=== PATIENT | female | born 1965 | race Caucasian/White ===

== ENCOUNTER 2024-02-24 16:40 | Emergency (ER) | payer OTHER, SELFPAY ==
[2024-02-24 16:56] VITALS: BP 132/83
--- NOTE | 2024-02-24 16:57 | ED.GENMED ---
ED Provider Triage
-
Patient seen by provider in Triage?: Seen in Triage
58 yo female presents for evaluation of chest pain that began 90 min [employer] while eating. Pain is waxing and waning. Vomited x 4. + SOB. No hx of similar. Not worse with PO intake.
Appears well, initial EKG non ischemic. Check cardiac w/u
History of Present Illness
General
Chief Complaint: Chest Pain
History of Present Illness
History of Present Illness:
see triage
Past History
Past History
ED Past Medical History: Asthma (Singulair, albuterol inhaler as needed. Last needed 2 weeks ago), Cancer (Basal cell on back 10 yrs ago), GERD (Omeprazole), Hypercholesterolemia (Prevestatin), Psychiatric (Depression: takes Zoloft), Other
(palpitations: Metoprolol. Followed by Dr. Lara, cardiology in [facility].) and Other (Patient has a history of fibromyalgia, headaches, migraines, tingling in the extremities, pneumonia, hiatal hernia, irritable bowel syndrome, loss of urination
control, kidney stones, torsion kidney, impaired vision, and depression); Negative HTN, NIDDM, VA, Renal failure, Valvular disease or Hypothyroidism
ED Past Surgical History: Other (Partial hysterectomy, rectal reconstruction age 25 'every thing fell and they had to reconstruct it back up,' 4 bladder lifts)
Social History
Tobacco: Non-smoker
Alcohol: None
Personal: Single
Living: other (Significant other)
Employment: Not employed (trying to get SSI for chronic pain)
Family History
Family History: Negative Cancer (no hx colon cancer)
Phy Exam
Physical Exam
Physical Exam:
see triage
Scores
Heart Score for Chest Pain Patients
STEMI patient?: Not applicable
Course
Orders/Labs/Results
Orders:
Orders
02/24/24 16:41
Electrocardiogram (*1) Urgent
Reason for Study: Chest Pain
EKG- Treatment ONCE
02/24/24 16:57
CR Chest - 2 Views Urgent
Comment:
Reason For Exam: chest pain
02/24/24 17:06
Complete Blood Count/With Diff Urgent
Comprehensive Metabolic Panel Urgent
Troponin I Urgent
Abnormal Lab Results
02/24/24
17:06
RBC 4.06 L 10^6/uL
(4.20-5.40)
Hgb 10.6 L g/dL
(12.0-16.0)
Hct 33.6 L %
(37.0-47.0)
MCH 26.1 L pg
(27.0-31.0)
MCHC 31.5 L g/dL
(33.0-37.0)
Absolute Lymphs (auto) 1.1 L 10^3/uL
(1.2-3.4)
Lymphocytes % 19.0 L %
(20.5-51.1)
Glucose 111 H mg/dl
(70-99)
AST 56 H U/L
(14-36)
Alkaline Phosphatase 165 H U/L
(38-126)
02/24/24 17:06
02/24/24 17:06
Vital Signs
Initial and Last Documented VS:
Initial Vital Signs
Temp Pulse Resp BP Pulse Ox
97.7 F 76 18 132/83 97
02/24/24 16:56 02/24/24 16:56 02/24/24 16:56 02/24/24 16:56 02/24/24 16:56
Last Documented Vital Signs
Temp Pulse Resp BP Pulse Ox
97.7 F 76 18 132/83 97
02/24/24 16:56 02/24/24 16:56 02/24/24 16:56 02/24/24 16:56 02/24/24 16:56
*Critical Care Note
Total Time (30-74mins, 75-104mins- exclusive of procedures): Not Applicable
ED Attending Note
-
Portions of this chart may have been created with voice recognition software.� Occasional wrong word or��sound alike� substitutions may have occurred due to the inherent limitations of voice recognition software.
Discharge Plan
Departure
Patient Disposition: Left Without Treatment
Prescriptions:
No Action
methylprednisolone 4 MG tablet
4 mg PO TAPER
dipyridamole 50 MG tablet
50 mg PO HS
montelukast 10 MG tablet
10 mg PO QPM
pravastatin 20 MG tablet
20 mg PO HS
metoprolol succinate [Toprol XL] 25 MG tablet extended release 24 hr
25 mg PO HS
hydroxychloroquine 200 MG tablet
200 mg PO HS
sertraline 50 MG tablet
50 mg PO HS
pregabalin [Lyrica] 75 MG capsule
75 mg PO HS
cholecalciferol (vitamin D3) [Vitamin D3] 4,000 UNIT capsule
4,000 unit PO HS
Colcrys
0.6 mg PO HS
Iron
45 mg PO HS
methylprednisolone [Medrol (Demond)] 4 MG tablets,dose pack
4 tab PO . DIRECT Qty: 1 0RF
prednisone 10 MG tablet
10 mg PO .TAPER Qty: 30 0RF
Rx Instructions:
Take 50mg daily for 2 days, 40mg daily for 2 days, 30mg daily for 2 days, 20mg daily for 2 days, 10mg daily for 2 days
amoxicillin-pot clavulanate 1 TABLET tablet
1 tab PO Q12 Qty: 20 0RF
Interventions
Interventions:
*Nursing Disposition Last Done: 02/24/24 21:41
Discharge Date and Time
Discharge Date/Time: 02/24/24 21:40
Print Language: GUATEMALAN
[2024-02-24 17:17] LABS: % Basophils 0.5 % (0-2); % Eosinophils 3.7 % (0-6); % Immature Granulocytes 0.2 % (0-0.5); % Monocytes 6.6 % (1.7-9.3); Absolute Eosinophils 0.2 10^3/uL (0-0.7); Absolute Lymphocytes 1.1 10^3/uL (1.2-3.4); Absolute Monocytes 0.4 10^3/uL (0.1-0.6); Hematocrit 33.6 % (37.0-47.0); Hemoglobin 10.6 g/dL (12.0-16.0); Mean Corp Hgb Conc. 31.5 g/dL (33.0-37.0); Mean Corpuscular Hgb 26.1 pg (27.0-31.0); Mean Corpuscular Volume 82.8 fL (81.0-99.0); Mean Platelet Volume 9.8 fL (7.4-10.4); Nucleated Red Blood Cells % 0 %; Platelet Count 207 10^3/uL (130-400); Red Blood Cell Count 4.06 10^6/uL (4.20-5.40); Red Cell Dist. Width 12.6 % (11.5-14.5); White Blood Cell Count 5.8 10^3/uL (4.8-10.8)
[2024-02-24 17:35] LABS: ALT (SGPT) 14 U/L (0-35); AST (SGOT) 56 U/L (14-36); Albumin 4.2 g/dl (3.5-5.0); Alkaline Phosphatase 165 U/L (38-126); Blood Urea Nitrogen 9 mg/dl (7-17); Calcium 9.3 mg/dl (8.4-10.2); Carbon Dioxide 30 mmol/L (22-30); Chloride 106 mmol/L (98-107); Glucose 111 mg/dl (70-99); Potassium 4.9 mmol/L (3.5-5.1); Sodium 141 mmol/L (135-145); Total Bilirubin 0.5 mg/dl (0.2-1.3); Total Protein 6.8 g/dl (6.3-8.2); eGFR > 60.00
[2024-02-24 17:39] LABS: Troponin I < 0.012 ng/ml
== END 2024-02-24 21:40 ==
LOC: EMR 16:40
PROVIDERS: Physician Assistant
DX: R07.89 Other chest pain (principal); Z53.21 Procedure and treatment not carried out due to patient leaving prior to being seen by health care provider
CPT/HCPCS: 99281; 71046; 80053; 84484; 85025; 93005

== ENCOUNTER → 2024-04-10 09:21 | Outpatient (REF) | payer OTHER, SELFPAY ==
[2024-04-10 12:44] LABS: % Basophils 0.8 % (0-2); % Eosinophils 6.1 % (0-6); % Lymphocytes 35.5 % (20.5-51.1); % Monocytes 9.8 % (1.7-9.3); % Neutrophils 47.8 % (42.2-75.2); Absolute Eosinophils 0.2 10^3/uL (0-0.7); Absolute Lymphocytes 1.3 10^3/uL (1.2-3.4); Absolute Monocytes 0.4 10^3/uL (0.1-0.6); Absolute Neutrophils 1.8 10^3/uL (1.4-6.5); Hematocrit 33.7 % (37.0-47.0); Hemoglobin 10.2 g/dL (12.0-16.0); Mean Corp Hgb Conc. 30.3 g/dL (33.0-37.0); Mean Corpuscular Hgb 24.4 pg (27.0-31.0); Mean Corpuscular Volume 80.6 fL (81.0-99.0); Mean Platelet Volume 10.5 fL (7.4-10.4); Nucleated Red Blood Cells % 0 %; Platelet Count 198 10^3/uL (130-400); Red Blood Cell Count 4.18 10^6/uL (4.20-5.40); White Blood Cell Count 3.8 10^3/uL (4.8-10.8)
[2024-04-10 12:53] LABS: ALT (SGPT) 12 U/L (0-35); AST (SGOT) 31 U/L (14-36); Alkaline Phosphatase 109 U/L (38-126); Blood Urea Nitrogen 10 mg/dl (7-17); Calcium 9.2 mg/dl (8.4-10.2); Carbon Dioxide 29 mmol/L (22-30); Chloride 105 mmol/L (98-107); Glucose 63 mg/dl (70-99); Potassium 3.9 mmol/L (3.5-5.1); Sodium 140 mmol/L (135-145); Total Bilirubin 0.8 mg/dl (0.2-1.3); Total Protein 6.7 g/dl (6.3-8.2); eGFR > 60.00
[2024-04-12 14:16] LABS: Iron 60 ug/dl (37-170)
[2024-04-12 14:25] LABS: Percent Saturation 13 % (20-50); Total Iron Binding Capacity 433 ug/dl (265-497)
[2024-04-12 15:08] LABS: Ferritin 6.1 ng/ml (11.1-264.0)
[2024-04-12 15:22] LABS: Vitamin B12 > 1000 pg/ml (239-931)
== END ==
LOC: HWLAB 09:21
PROVIDERS: ATTENDING PHYSICIAN Nurse Practitioner Family
DX: I10 Essential (primary) hypertension (principal); R74.8 Abnormal levels of other serum enzymes; D64.9 Anemia, unspecified
CPT/HCPCS: 36415; 80053; 82607; 82728; 83540; 83550; 85025; 93005

== ENCOUNTER → 2024-04-17 09:20 | Outpatient (REF) | payer OTHER, SELFPAY | LOC: HWWDC 09:20 | PROVIDERS: ATTENDING PHYSICIAN Nurse Practitioner Family | DX: Z12.31 Encounter for screening mammogram for malignant neoplasm of breast (principal) | CPT/HCPCS: 77063; 77067 ==

== ENCOUNTER → 2024-05-04 08:30 | Outpatient (REF) | payer OTHER, SELFPAY ==
[2024-05-04 13:03] LABS: % Basophils 0.7 % (0-2); % Eosinophils 6.2 % (0-6); % Immature Granulocytes 0.3 % (0-0.5); % Lymphocytes 37.7 % (20.5-51.1); % Monocytes 9.6 % (1.7-9.3); % Neutrophils 45.5 % (42.2-75.2); Absolute Eosinophils 0.2 10^3/uL (0-0.7); Absolute Lymphocytes 1.1 10^3/uL (1.2-3.4); Absolute Monocytes 0.3 10^3/uL (0.1-0.6); Absolute Neutrophils 1.3 10^3/uL (1.4-6.5); Hematocrit 32.9 % (37.0-47.0); Hemoglobin 10.3 g/dL (12.0-16.0); Mean Corp Hgb Conc. 31.3 g/dL (33.0-37.0); Mean Corpuscular Hgb 24.7 pg (27.0-31.0); Mean Corpuscular Volume 78.9 fL (81.0-99.0); Mean Platelet Volume 11.1 fL (7.4-10.4); Nucleated Red Blood Cells % 0 %; Platelet Count 176 10^3/uL (130-400); Red Blood Cell Count 4.17 10^6/uL (4.20-5.40); Red Cell Dist. Width 15.2 % (11.5-14.5); White Blood Cell Count 2.9 10^3/uL (4.8-10.8)
[2024-05-04 13:31] LABS: ALT (SGPT) < 10 U/L (0-35); AST (SGOT) 24 U/L (14-36); Albumin 4.4 g/dl (3.5-5.0); Alkaline Phosphatase 103 U/L (38-126); Blood Urea Nitrogen 11 mg/dl (7-17); Calcium 9.5 mg/dl (8.4-10.2); Carbon Dioxide 26 mmol/L (22-30); Chloride 106 mmol/L (98-107); Glucose 96 mg/dl (70-99); Iron 60 ug/dl (37-170); Potassium 3.9 mmol/L (3.5-5.1); Sodium 140 mmol/L (135-145); Total Bilirubin 0.9 mg/dl (0.2-1.3); Total Protein 6.8 g/dl (6.3-8.2); eGFR > 60.00
[2024-05-04 13:42] LABS: Percent Saturation 14 % (20-50); Total Iron Binding Capacity 427 ug/dl (265-497)
[2024-05-04 14:03] LABS: Ferritin 7.2 ng/ml (11.1-264.0)
== END ==
LOC: HWLAB 08:30
PROVIDERS: ATTENDING PHYSICIAN Nurse Practitioner
DX: D64.9 Anemia, unspecified (principal)
CPT/HCPCS: 36415; 80053; 82728; 83540; 83550; 85025

== ENCOUNTER → 2024-05-10 07:57 | Outpatient (REF) | payer OTHER, SELFPAY | LOC: HWRAD 07:57 | PROVIDERS: ATTENDING PHYSICIAN Nurse Practitioner; FAMILY PHYSICIAN Nurse Practitioner Family | DX: R10.84 Generalized abdominal pain (principal) | CPT/HCPCS: 76700 ==

== ENCOUNTER → 2024-06-03 07:23 | Outpatient (REF) | payer OTHER, SELFPAY | LOC: PAVMRI 07:23 | PROVIDERS: ATTENDING PHYSICIAN Student in an Organized Health Care Education/Training Program; FAMILY PHYSICIAN Nurse Practitioner Family | DX: M54.16 Radiculopathy, lumbar region (principal) | CPT/HCPCS: 72148 ==

== ENCOUNTER → 2024-09-10 07:47 | Outpatient (REF) | payer OTHER, SELFPAY ==
[2024-09-10 09:30] LABS: Hematocrit 41.2 % (37.0-47.0); Hemoglobin 13.5 g/dL (12.0-16.0); Mean Corp Hgb Conc. 32.8 g/dL (33.0-37.0); Mean Corpuscular Volume 88.4 fL (81.0-99.0); Nucleated Red Blood Cells % 0 %; Platelet Count 158 10^3/uL (130-400); Red Cell Dist. Width 14.2 % (11.5-14.5)
[2024-09-10 09:41] LABS: ALT (SGPT) 13 U/L (0-35); AST (SGOT) 32 U/L (14-36); Albumin 4.3 g/dl (3.5-5.0); Alkaline Phosphatase 116 U/L (38-126); Blood Urea Nitrogen 11 mg/dl (7-17); Calcium 9.5 mg/dl (8.4-10.2); Carbon Dioxide 29 mmol/L (22-30); Chloride 106 mmol/L (98-107); Glucose 99 mg/dl (70-99); HDL Cholesterol 70 mg/dl; LDL Cholesterol, Calculated 114 mg/dl; Potassium 4.2 mmol/L (3.5-5.1); Sodium 140 mmol/L (135-145); Total Protein 6.9 g/dl (6.3-8.2); Very Low Density Lipoprotein 25 mg/dl (0-30); eGFR > 60.00
[2024-09-10 09:53] LABS: Vitamin D, 25-OH*** 33.4 ng/mL (30-80)
[2024-09-10 10:06] LABS: TSH 1.66 uIU/ml (0.47-4.68)
[2024-09-10 10:42] LABS: Folate > 20.0 ng/ml (2.76-20); Vitamin B12 > 1000 pg/ml (239-931)
[2024-09-10 11:15] LABS: Glycohemoglobin (HgbA1c) 5.6 % (4.0-5.6)
== END ==
LOC: HWLAB 07:47
PROVIDERS: ATTENDING PHYSICIAN Nurse Practitioner Family; FAMILY PHYSICIAN Family Medicine
DX: F31.31 Bipolar disorder, current episode depressed, mild (principal); F43.10 Post-traumatic stress disorder, unspecified; G25.9 Extrapyramidal and movement disorder, unspecified; F50.819 Binge eating disorder, unspecified
CPT/HCPCS: 36415; 80053; 80061; 80175; 82248; 82306; 82607; 82746; 83036; 84146; 84443; 85025

== ENCOUNTER → 2024-11-09 07:28 | Outpatient (REF) | payer OTHER, SELFPAY | LOC: PAVMRI 07:28 | PROVIDERS: ATTENDING PHYSICIAN Nurse Practitioner; FAMILY PHYSICIAN Family Medicine | DX: R10.84 Generalized abdominal pain (principal); R93.5 Abnormal findings on diagnostic imaging of other abdominal regions, including retroperitoneum | CPT/HCPCS: 74183; A9575 ==

== ENCOUNTER → 2024-11-27 08:34 | Outpatient (REF) | payer OTHER, SELFPAY ==
[2024-11-27 13:08] LABS: C-Reactive Protein < 5.00 mg/L (0.0-10.00)
[2024-11-28 15:53] LABS: tTG IgA Antibody 13.5 EU/ml (0-19); tTG IgG Antibody 6.7 EU/ml (0-19)
== END ==
LOC: HWLAB 08:34
PROVIDERS: ATTENDING PHYSICIAN Internal Medicine Rheumatology; FAMILY PHYSICIAN Family Medicine
DX: M06.4 Inflammatory polyarthropathy (principal); R21 Rash and other nonspecific skin eruption; R11.2 Nausea with vomiting, unspecified
CPT/HCPCS: 36415; 82784; 83516; 85652; 86140; 86160; 86231

== ENCOUNTER → 2024-12-21 08:24 | Outpatient (REF) | payer OTHER, SELFPAY ==
[2024-12-21 12:54] LABS: Hematocrit 40.5 % (37.0-47.0); Hemoglobin 13.8 g/dL (12.0-16.0); Mean Corp Hgb Conc. 34.1 g/dL (33.0-37.0); Mean Corpuscular Volume 90.0 fL (81.0-99.0); Nucleated Red Blood Cells % 0 %; Platelet Count 158 10^3/uL (130-400); Red Cell Dist. Width 12.1 % (11.5-14.5)
[2024-12-21 12:59] LABS: Iron 123 ug/dl (37-170)
[2024-12-21 13:14] LABS: Total Iron Binding Capacity 294 ug/dl (265-497)
[2024-12-21 13:38] LABS: Ferritin 83.1 ng/ml (11.1-264.0)
[2024-12-21 13:53] LABS: Vitamin B12 > 1000 pg/ml (239-931)
== END ==
LOC: HWLAB 08:24
PROVIDERS: FAMILY PHYSICIAN Family Medicine
DX: D50.8 Other iron deficiency anemias (principal); E53.8 Deficiency of other specified B group vitamins
CPT/HCPCS: 36415; 82607; 82728; 83540; 83550; 85025